=== PATIENT | male | born 1940 | race Caucasian/White ===

== ENCOUNTER 2023-02-19 11:57 | Inpatient (IN) | payer BC, MEDICARE ==
[2023-02-19] MEDS ORDERED: Bisacodyl 5 MG TAB PO PRN (15:32)
[2023-02-19] MEDS ORDERED: Artificial Tear Sol 15 ML BOT EA EYE PRN (15:32)
[2023-02-19] MEDS ORDERED: Calcium Carbonate 500 MG ChewTAB PO PRN (15:32)
[2023-02-19] MEDS ORDERED: Benzonatate 100 MG CAP PO PRN (15:32)
[2023-02-19] MEDS ORDERED: Guaifenesin DM 100-10/5 ML UDCUP PO PRN (15:32)
[2023-02-19] MEDS ORDERED: Bisacodyl 10 MG SUPP PR PRN (15:32)
[2023-02-19] MEDS ORDERED: Acetaminophen 325 MG TAB PO PRN (15:32)
[2023-02-19] MEDS ORDERED: Sodium Chloride 0.65% Nasal 44 ML BOT EA NARE PRN (15:32)
[2023-02-19] MEDS ORDERED: cloNIDine 0.1 MG TAB PO PRN (15:32)
[2023-02-19] MEDS ORDERED: Senokot S 8.6-50 MG TAB PO PRN (15:32)
[2023-02-19] MEDS ORDERED: Ondansetron ODT 4 MG TAB PO PRN (15:32)
[2023-02-19] MEDS ORDERED: Benzocaine/Menthol 1 LOZ LOZ PO PRN (15:32)
[2023-02-20] MEDS ORDERED: HYDROcodone/Acetaminophen 7.5/325 mg Tablet PO PRN (10:05)
[2023-02-20] MEDS: Famotidine 20 MG TAB PO SCH ×2 (12:44→20:49)
[2023-02-20] MEDS: HYDROcodone/Acetaminophen 7.5/325 mg Tablet PO PRN (16:14)
[2023-02-20] MEDS: Cilostazol 100 MG TAB PO SCH (16:15)
[2023-02-20] MEDS ORDERED: Non-Formulary Item 1 EACH (Cilostazol [Cilostazol] 50 MG Tablet) PO SCH (16:30)
[2023-02-20] MEDS: Gabapentin 100 MG CAP PO SCH (20:50)
[2023-02-20] MEDS: prednisoLONE 1% Ophth Susp 5 ml Bottle L EYE SCH (20:50)
[2023-02-20] MEDS: Simvastatin 10 MG TAB PO SCH (20:50)
[2023-02-20] MEDS: Senokot S 8.6-50 MG TAB PO SCH (20:50)
[2023-02-20] MEDS: Linezolid 600 MG TAB PO SCH (20:50)
[2023-02-20] MEDS: Nystatin Powder 15 GM BOT TOP SCH (20:51)
[2023-02-20] MEDS: Apixaban 5 MG TAB PO SCH (20:52)
[2023-02-20] MEDS ORDERED: Non-Formulary Item 1 EACH (Zolpidem Tartrate [Zolpidem Tartrate] 10 MG Tablet) PO SCH (21:00)
[2023-02-20] MEDS: Zolpidem Tartrate 5 MG TAB PO SCH (22:50)
[2023-02-21] MEDS: Levothyroxine Sodium 75 MCG TAB PO SCH (05:23)
[2023-02-21] MEDS: Cilostazol 100 MG TAB PO SCH ×2 (08:33→17:20)
[2023-02-21] MEDS ORDERED: Non-Formulary Item 1 EACH (Potassium Citrate [Potassium] 99 MG Capsule) PO SCH (09:00)
[2023-02-21] MEDS: Saccharomyces boulardii 250 MG CAP PO SCH (09:17)
[2023-02-21] MEDS: Potassium Chloride 8 MEQ TAB PO SCH (09:17)
[2023-02-21] MEDS: Senokot S 8.6-50 MG TAB PO SCH ×2 (09:17→20:41)
[2023-02-21] MEDS: Gabapentin 100 MG CAP PO SCH ×2 (09:18→20:41)
[2023-02-21] MEDS: Linezolid 600 MG TAB PO SCH ×2 (09:18→20:41)
[2023-02-21] MEDS: Famotidine 20 MG TAB PO SCH (09:18)
[2023-02-21] MEDS: Apixaban 5 MG TAB PO SCH ×2 (09:18→20:41)
[2023-02-21] MEDS: Folic Acid 1 MG TAB PO SCH (09:18)
[2023-02-21] MEDS: prednisoLONE 1% Ophth Susp 5 ml Bottle L EYE SCH ×2 (09:20→20:42)
[2023-02-21] MEDS: Nystatin Powder 15 GM BOT TOP SCH ×2 (09:21→20:41)
[2023-02-21] MEDS: Simvastatin 10 MG TAB PO SCH (20:41)
[2023-02-21] MEDS: HYDROcodone/Acetaminophen 7.5/325 mg Tablet PO PRN (20:46)
[2023-02-21] MEDS: Zolpidem Tartrate 5 MG TAB PO SCH (22:13)
[2023-02-22] MEDS: Levothyroxine Sodium 75 MCG TAB PO SCH (05:59)
[2023-02-22] MEDS: Apixaban 5 MG TAB PO SCH ×2 (07:37→20:47)
[2023-02-22] MEDS: HYDROcodone/Acetaminophen 7.5/325 mg Tablet PO PRN ×3 (07:38→20:50)
[2023-02-22] MEDS: Linezolid 600 MG TAB PO SCH ×2 (07:38→20:47)
[2023-02-22] MEDS: Saccharomyces boulardii 250 MG CAP PO SCH (07:39)
[2023-02-22] MEDS: Cilostazol 100 MG TAB PO SCH ×2 (07:39→16:28)
[2023-02-22] MEDS: Folic Acid 1 MG TAB PO SCH (07:39)
[2023-02-22] MEDS: Nystatin Powder 15 GM BOT TOP SCH ×2 (07:40→20:48)
[2023-02-22] MEDS: Potassium Chloride 8 MEQ TAB PO SCH (07:40)
[2023-02-22] MEDS: Senokot S 8.6-50 MG TAB PO SCH ×2 (07:40→20:47)
[2023-02-22] MEDS: prednisoLONE 1% Ophth Susp 5 ml Bottle L EYE SCH ×2 (07:41→20:48)
[2023-02-22] MEDS: Gabapentin 100 MG CAP PO SCH ×2 (07:42→20:47)
[2023-02-22] MEDS: traMADol HCl 50 MG TAB PO PRN (09:53)
[2023-02-22] MEDS ORDERED: Dextrose 50% Abboject 50 ML SYRINGE SLOW IVP PRN (17:15)
[2023-02-22] MEDS ORDERED: HumaLOG 300 UNITS/3 ML VIAL SC PRN ×2 (17:15)
[2023-02-22] MEDS ORDERED: Glucagon 1 MG/ML KIT IM PRN (17:15)
[2023-02-22] MEDS: Simvastatin 10 MG TAB PO SCH (20:47)
[2023-02-22] MEDS: Zolpidem Tartrate 5 MG TAB PO SCH (22:34)
[2023-02-23 05:10] LABS: Hematocrit 34.3 % (42.0-52.0); Platelet Count 502 10x3/uL (130-400)
[2023-02-23] MEDS: Levothyroxine Sodium 75 MCG TAB PO SCH (05:30)
[2023-02-23] MEDS: HYDROcodone/Acetaminophen 7.5/325 mg Tablet PO PRN ×4 (05:44→22:22)
[2023-02-23] MEDS: Potassium Chloride 8 MEQ TAB PO SCH (08:10)
[2023-02-23] MEDS: Apixaban 5 MG TAB PO SCH ×2 (08:10→20:45)
[2023-02-23] MEDS: Linezolid 600 MG TAB PO SCH ×2 (08:10→20:45)
[2023-02-23] MEDS: Folic Acid 1 MG TAB PO SCH (08:10)
[2023-02-23] MEDS: Gabapentin 100 MG CAP PO SCH ×2 (08:11→20:44)
[2023-02-23] MEDS: Senokot S 8.6-50 MG TAB PO SCH ×2 (08:11→20:44)
[2023-02-23] MEDS: Cilostazol 100 MG TAB PO SCH ×2 (08:12→16:32)
[2023-02-23] MEDS: Saccharomyces boulardii 250 MG CAP PO SCH (08:12)
[2023-02-23] MEDS: Nystatin Powder 15 GM BOT TOP SCH ×2 (08:13→20:44)
[2023-02-23] MEDS: prednisoLONE 1% Ophth Susp 5 ml Bottle L EYE SCH ×2 (08:13→20:44)
[2023-02-23] MEDS: traMADol HCl 50 MG TAB PO PRN (08:18)
[2023-02-23] MEDS: Simvastatin 10 MG TAB PO SCH (20:45)
[2023-02-23] MEDS: Zolpidem Tartrate 5 MG TAB PO SCH (22:18)
[2023-02-24] MEDS: Levothyroxine Sodium 75 MCG TAB PO SCH (08:26)
[2023-02-24] MEDS: HYDROcodone/Acetaminophen 7.5/325 mg Tablet PO PRN (08:33)
[2023-02-24] MEDS: Potassium Chloride 8 MEQ TAB PO SCH (09:02)
[2023-02-24] MEDS: Gabapentin 100 MG CAP PO SCH ×2 (09:02→20:21)
[2023-02-24] MEDS: Linezolid 600 MG TAB PO SCH ×2 (09:02→20:21)
[2023-02-24] MEDS: Saccharomyces boulardii 250 MG CAP PO SCH (09:02)
[2023-02-24] MEDS: Senokot S 8.6-50 MG TAB PO SCH ×2 (09:03→20:21)
[2023-02-24] MEDS: Folic Acid 1 MG TAB PO SCH (09:03)
[2023-02-24] MEDS: Cilostazol 100 MG TAB PO SCH ×2 (09:03→16:07)
[2023-02-24] MEDS: Nystatin Powder 15 GM BOT TOP SCH ×2 (09:03→20:21)
[2023-02-24] MEDS: prednisoLONE 1% Ophth Susp 5 ml Bottle L EYE SCH ×2 (09:03→20:21)
[2023-02-24] MEDS: Apixaban 5 MG TAB PO SCH ×2 (09:03→20:21)
[2023-02-24] MEDS: Simvastatin 10 MG TAB PO SCH (20:22)
[2023-02-24] MEDS: Zolpidem Tartrate 5 MG TAB PO SCH (20:22)
[2023-02-25 05:46] LABS: #Basophils 0.2 thou/uL (0.0-0.2); #Eosinphils 0.3 thou/uL (0.0-0.7); #Lymphocytes 2.4 thou/uL (1.20-3.40); #Monocytes 0.7 thou/uL (0.11-0.59); #Neutrophils 5.1 thou/uL (1.40-6.50); %Eosinophils 3.8 % (0.0-10.0); %Lymphocytes 27.9 % (21.0-51.0); %Neutrophils 58.3 % (42.0-75.0); Hematocrit 34.7 % (42.0-52.0); Hemoglobin 11.4 g/dL (14.0-18.0); Manual Diff?? NO; Mean Corpuscular HGB CONC 32.7 g/dL (32.0-36.0); Mean Corpuscular Hemoglobin 33.1 pg (27.0-31.0); Mean Platelet Volume 5.5 fL (7.4-10.4); Platelet Count 491 10x3/uL (130-400); RBC Distribution Width 14.1 % (11.5-14.5); Red Blood Cell (RBC) Count 3.43 mill/uL (4.70-6.10); White Blood Cell (WBC) Count 8.7 10x3/uL (4.8-10.8)
[2023-02-25 05:54] LABS: Anion Gap 10 mmol/L (10-20); BUN (Urea Nitrogen) 26 mg/dL (8.4-25.7); Calc. Creatinine Clearance 70 mL/min (70-130); Calcium 8.6 mg/dL (7.8-10.44); Chloride 105 mmol/L (98-107); Estimated GFR 88; Glucose 84 mg/dL (83-110); Potassium 4.3 mmol/L (3.5-5.1); Sodium 138 mmol/L (136-145)
[2023-02-25 05:57] LABS: Carbon Dioxide 27 mmol/L (23-31)
[2023-02-25] MEDS: Levothyroxine Sodium 75 MCG TAB PO SCH (06:11)
[2023-02-25] MEDS: Linezolid 600 MG TAB PO SCH ×2 (08:22→20:36)
[2023-02-25] MEDS: Potassium Chloride 8 MEQ TAB PO SCH (08:22)
[2023-02-25] MEDS: Gabapentin 100 MG CAP PO SCH ×2 (08:23→20:36)
[2023-02-25] MEDS: Saccharomyces boulardii 250 MG CAP PO SCH (08:23)
[2023-02-25] MEDS: HYDROcodone/Acetaminophen 7.5/325 mg Tablet PO PRN ×2 (08:23→20:39)
[2023-02-25] MEDS: Folic Acid 1 MG TAB PO SCH (08:23)
[2023-02-25] MEDS: Cilostazol 100 MG TAB PO SCH ×2 (08:25→16:05)
[2023-02-25] MEDS: Nystatin Powder 15 GM BOT TOP SCH ×2 (08:25→20:37)
[2023-02-25] MEDS: prednisoLONE 1% Ophth Susp 5 ml Bottle L EYE SCH ×2 (08:25→20:37)
[2023-02-25] MEDS: Apixaban 5 MG TAB PO SCH ×2 (08:25→20:36)
[2023-02-25] MEDS: Senokot S 8.6-50 MG TAB PO SCH ×2 (08:25→20:47)
[2023-02-25] MEDS: Simvastatin 10 MG TAB PO SCH (20:36)
[2023-02-25] MEDS: Zolpidem Tartrate 5 MG TAB PO SCH (22:29)
[2023-02-26] MEDS: Levothyroxine Sodium 75 MCG TAB PO SCH (05:23)
[2023-02-26] MEDS: Cilostazol 100 MG TAB PO SCH ×2 (08:13→16:28)
[2023-02-26] MEDS: Apixaban 5 MG TAB PO SCH ×2 (08:14→21:00)
[2023-02-26] MEDS: Linezolid 600 MG TAB PO SCH ×2 (08:15→21:01)
[2023-02-26] MEDS: Folic Acid 1 MG TAB PO SCH (08:15)
[2023-02-26] MEDS: Gabapentin 100 MG CAP PO SCH ×2 (08:15→21:01)
[2023-02-26] MEDS: Potassium Chloride 8 MEQ TAB PO SCH (09:00)
[2023-02-26] MEDS: Nystatin Powder 15 GM BOT TOP SCH ×2 (09:00→21:02)
[2023-02-26] MEDS: Senokot S 8.6-50 MG TAB PO SCH ×2 (09:01→21:00)
[2023-02-26] MEDS: Saccharomyces boulardii 250 MG CAP PO SCH (09:01)
[2023-02-26] MEDS: prednisoLONE 1% Ophth Susp 5 ml Bottle L EYE SCH ×2 (09:01→21:02)
[2023-02-26] MEDS: HYDROcodone/Acetaminophen 7.5/325 mg Tablet PO PRN ×2 (16:28→21:07)
[2023-02-26] MEDS: Simvastatin 10 MG TAB PO SCH (21:01)
[2023-02-26] MEDS: Zolpidem Tartrate 5 MG TAB PO SCH (22:29)
[2023-02-27] MEDS: Levothyroxine Sodium 75 MCG TAB PO SCH (05:33)
[2023-02-27] MEDS: HYDROcodone/Acetaminophen 7.5/325 mg Tablet PO PRN ×2 (05:36→20:50)
[2023-02-27] MEDS: Senokot S 8.6-50 MG TAB PO SCH ×2 (07:37→21:39)
[2023-02-27] MEDS: prednisoLONE 1% Ophth Susp 5 ml Bottle L EYE SCH ×2 (07:37→21:37)
[2023-02-27] MEDS: Potassium Chloride 8 MEQ TAB PO SCH (07:39)
[2023-02-27] MEDS: Saccharomyces boulardii 250 MG CAP PO SCH (07:39)
[2023-02-27] MEDS: Linezolid 600 MG TAB PO SCH ×2 (07:39→21:37)
[2023-02-27] MEDS: Folic Acid 1 MG TAB PO SCH (07:39)
[2023-02-27] MEDS: Apixaban 5 MG TAB PO SCH ×2 (07:39→21:35)
[2023-02-27] MEDS: Cilostazol 100 MG TAB PO SCH ×2 (07:40→16:27)
[2023-02-27] MEDS: Gabapentin 100 MG CAP PO SCH ×3 (07:40→21:35)
[2023-02-27] MEDS: Nystatin Powder 15 GM BOT TOP SCH ×2 (07:43→21:39)
[2023-02-27] MEDS: Zolpidem Tartrate 5 MG TAB PO SCH (21:34)
[2023-02-27] MEDS: Simvastatin 10 MG TAB PO SCH (21:37)
[2023-02-28] MEDS: Levothyroxine Sodium 75 MCG TAB PO SCH (05:29)
[2023-02-28] MEDS: HYDROcodone/Acetaminophen 7.5/325 mg Tablet PO PRN ×3 (06:33→21:10)
[2023-02-28] MEDS: Cilostazol 100 MG TAB PO SCH ×2 (07:31→17:06)
[2023-02-28] MEDS: Nystatin Powder 15 GM BOT TOP SCH ×3 (08:00→21:09)
[2023-02-28] MEDS: Saccharomyces boulardii 250 MG CAP PO SCH (08:18)
[2023-02-28] MEDS: Folic Acid 1 MG TAB PO SCH (08:18)
[2023-02-28] MEDS: Senokot S 8.6-50 MG TAB PO SCH ×2 (08:18→21:08)
[2023-02-28] MEDS: Potassium Chloride 8 MEQ TAB PO SCH (08:18)
[2023-02-28] MEDS: Gabapentin 100 MG CAP PO SCH ×2 (08:19→21:09)
[2023-02-28] MEDS: Linezolid 600 MG TAB PO SCH ×2 (08:20→21:06)
[2023-02-28] MEDS: Apixaban 5 MG TAB PO SCH ×2 (08:20→21:08)
[2023-02-28] MEDS: prednisoLONE 1% Ophth Susp 5 ml Bottle L EYE SCH ×2 (08:21→21:08)
[2023-02-28] MEDS: Simvastatin 10 MG TAB PO SCH (21:08)
[2023-02-28] MEDS: Zolpidem Tartrate 5 MG TAB PO SCH (21:09)
[2023-03-01] MEDS: HYDROcodone/Acetaminophen 7.5/325 mg Tablet PO PRN ×2 (03:33→20:59)
[2023-03-01] MEDS: Levothyroxine Sodium 75 MCG TAB PO SCH (05:38)
[2023-03-01] MEDS: Cilostazol 100 MG TAB PO SCH ×2 (07:06→16:39)
[2023-03-01] MEDS: Potassium Chloride 8 MEQ TAB PO SCH (07:47)
[2023-03-01] MEDS: Saccharomyces boulardii 250 MG CAP PO SCH (07:48)
[2023-03-01] MEDS: Senokot S 8.6-50 MG TAB PO SCH ×2 (07:48→21:01)
[2023-03-01] MEDS: Linezolid 600 MG TAB PO SCH ×2 (07:48→21:03)
[2023-03-01] MEDS: Folic Acid 1 MG TAB PO SCH (07:49)
[2023-03-01] MEDS: Gabapentin 100 MG CAP PO SCH ×2 (07:49→21:01)
[2023-03-01] MEDS: Apixaban 5 MG TAB PO SCH ×2 (07:50→21:02)
[2023-03-01] MEDS: prednisoLONE 1% Ophth Susp 5 ml Bottle L EYE SCH ×2 (07:51→21:03)
[2023-03-01] MEDS: Nystatin Powder 15 GM BOT TOP SCH ×4 (09:15→21:10)
[2023-03-01] MEDS: Zolpidem Tartrate 5 MG TAB PO SCH (21:03)
[2023-03-01] MEDS: Simvastatin 10 MG TAB PO SCH (21:03)
[2023-03-02] MEDS: Levothyroxine Sodium 75 MCG TAB PO SCH (05:52)
[2023-03-02] MEDS: Cilostazol 100 MG TAB PO SCH ×2 (07:29→16:42)
[2023-03-02] MEDS: Nystatin Powder 15 GM BOT TOP SCH ×2 (08:28→20:44)
[2023-03-02] MEDS: Gabapentin 100 MG CAP PO SCH ×2 (08:29→20:43)
[2023-03-02] MEDS: prednisoLONE 1% Ophth Susp 5 ml Bottle L EYE SCH ×2 (08:29→20:45)
[2023-03-02] MEDS: Senokot S 8.6-50 MG TAB PO SCH ×2 (08:30→20:44)
[2023-03-02] MEDS: Saccharomyces boulardii 250 MG CAP PO SCH (08:30)
[2023-03-02] MEDS: Potassium Chloride 8 MEQ TAB PO SCH (08:30)
[2023-03-02] MEDS: Apixaban 5 MG TAB PO SCH ×2 (08:30→20:42)
[2023-03-02] MEDS: Linezolid 600 MG TAB PO SCH ×2 (08:33→20:45)
[2023-03-02] MEDS: Folic Acid 1 MG TAB PO SCH (08:36)
[2023-03-02] MEDS: Zolpidem Tartrate 5 MG TAB PO SCH (20:44)
[2023-03-02] MEDS: Simvastatin 10 MG TAB PO SCH (20:44)
[2023-03-03] MEDS: HYDROcodone/Acetaminophen 7.5/325 mg Tablet PO PRN ×3 (03:09→16:08)
[2023-03-03 05:56] LABS: #Basophils 0.1 thou/uL (0.0-0.2); #Eosinphils 0.4 thou/uL (0.0-0.7); #Lymphocytes 2.2 thou/uL (1.20-3.40); #Monocytes 0.6 thou/uL (0.11-0.59); #Neutrophils 3.8 thou/uL (1.40-6.50); %Basophils 2.1 % (0.0-1.0); %Eosinophils 5.8 % (0.0-10.0); %Lymphocytes 30.5 % (21.0-51.0); %Monocytes 8.4 % (0.0-10.0); %Neutrophils 53.2 % (42.0-75.0); Hematocrit 31.5 % (42.0-52.0); Hemoglobin 10.3 g/dL (14.0-18.0); Mean Corpuscular HGB CONC 32.7 g/dL (32.0-36.0); Mean Corpuscular Hemoglobin 32.7 pg (27.0-31.0); Mean Platelet Volume 5.2 fL (7.4-10.4); Platelet Count 315 10x3/uL (130-400); RBC Distribution Width 13.6 % (11.5-14.5); Red Blood Cell (RBC) Count 3.15 mill/uL (4.70-6.10); White Blood Cell (WBC) Count 7.1 10x3/uL (4.8-10.8)
[2023-03-03 05:57] LABS: Anion Gap 11 mmol/L (10-20); BUN (Urea Nitrogen) 38 mg/dL (8.4-25.7); Calc. Creatinine Clearance 77 mL/min (70-130); Calcium 8.4 mg/dL (7.8-10.44); Carbon Dioxide 25 mmol/L (23-31); Chloride 107 mmol/L (98-107); Estimated GFR 90; Glucose 86 mg/dL (83-110); Potassium 4.4 mmol/L (3.5-5.1); Sodium 139 mmol/L (136-145)
[2023-03-03] MEDS: Levothyroxine Sodium 75 MCG TAB PO SCH (06:10)
[2023-03-03] MEDS: Cilostazol 100 MG TAB PO SCH ×2 (07:44→16:07)
[2023-03-03] MEDS: Gabapentin 100 MG CAP PO SCH ×2 (08:29→20:45)
[2023-03-03] MEDS: Saccharomyces boulardii 250 MG CAP PO SCH (08:29)
[2023-03-03] MEDS: Apixaban 5 MG TAB PO SCH ×2 (08:30→20:44)
[2023-03-03] MEDS: Senokot S 8.6-50 MG TAB PO SCH ×2 (08:30→20:44)
[2023-03-03] MEDS: Folic Acid 1 MG TAB PO SCH (08:31)
[2023-03-03] MEDS: Potassium Chloride 8 MEQ TAB PO SCH (08:31)
[2023-03-03] MEDS: prednisoLONE 1% Ophth Susp 5 ml Bottle L EYE SCH ×2 (08:32→20:47)
[2023-03-03] MEDS: Nystatin Powder 15 GM BOT TOP SCH ×2 (11:25→20:47)
[2023-03-03] MEDS: Simvastatin 10 MG TAB PO SCH (20:44)
[2023-03-03] MEDS: Zolpidem Tartrate 5 MG TAB PO SCH (20:45)
[2023-03-04] MEDS: Levothyroxine Sodium 75 MCG TAB PO SCH (06:01)
[2023-03-04] MEDS: Nystatin Powder 15 GM BOT TOP SCH ×2 (07:40→20:46)
[2023-03-04] MEDS: Cilostazol 100 MG TAB PO SCH ×2 (07:41→16:25)
[2023-03-04] MEDS: Senokot S 8.6-50 MG TAB PO SCH ×2 (07:42→20:46)
[2023-03-04] MEDS: prednisoLONE 1% Ophth Susp 5 ml Bottle L EYE SCH ×2 (07:42→20:47)
[2023-03-04] MEDS: Apixaban 5 MG TAB PO SCH ×2 (07:42→20:45)
[2023-03-04] MEDS: Folic Acid 1 MG TAB PO SCH (07:42)
[2023-03-04] MEDS: Gabapentin 100 MG CAP PO SCH ×2 (07:43→20:45)
[2023-03-04] MEDS: Potassium Chloride 8 MEQ TAB PO SCH (07:43)
[2023-03-04] MEDS: Saccharomyces boulardii 250 MG CAP PO SCH (07:48)
[2023-03-04] MEDS ORDERED: Linezolid 600 MG TAB PO SCH (10:45)
[2023-03-04] MEDS: Simvastatin 10 MG TAB PO SCH (20:45)
[2023-03-04] MEDS: Linezolid 600 MG TAB PO SCH (20:46)
[2023-03-04] MEDS: Zolpidem Tartrate 5 MG TAB PO SCH (20:47)
[2023-03-05] MEDS: Levothyroxine Sodium 75 MCG TAB PO SCH (06:33)
[2023-03-05] MEDS: Nystatin Powder 15 GM BOT TOP SCH ×2 (08:09→20:32)
[2023-03-05] MEDS: Potassium Chloride 8 MEQ TAB PO SCH (08:10)
[2023-03-05] MEDS: Apixaban 5 MG TAB PO SCH ×2 (08:10→20:20)
[2023-03-05] MEDS: Saccharomyces boulardii 250 MG CAP PO SCH (08:11)
[2023-03-05] MEDS: Gabapentin 100 MG CAP PO SCH ×2 (08:11→20:21)
[2023-03-05] MEDS: Senokot S 8.6-50 MG TAB PO SCH ×3 (08:12→20:25)
[2023-03-05] MEDS: Cilostazol 100 MG TAB PO SCH ×2 (08:12→17:21)
[2023-03-05] MEDS: Linezolid 600 MG TAB PO SCH ×2 (08:12→20:21)
[2023-03-05] MEDS: prednisoLONE 1% Ophth Susp 5 ml Bottle L EYE SCH ×2 (08:15→20:23)
[2023-03-05] MEDS: Folic Acid 1 MG TAB PO SCH (08:27)
[2023-03-05] MEDS: Simvastatin 10 MG TAB PO SCH (20:20)
[2023-03-05] MEDS: Zolpidem Tartrate 5 MG TAB PO SCH (20:20)
[2023-03-05] MEDS: HYDROcodone/Acetaminophen 7.5/325 mg Tablet PO PRN (20:31)
[2023-03-06] MEDS ORDERED: Triamcinolone 0.1% Cream 15 GM TUBE TOP PRN (03:42)
[2023-03-06] MEDS: Levothyroxine Sodium 75 MCG TAB PO SCH (05:38)
[2023-03-06] MEDS: Cilostazol 100 MG TAB PO SCH ×2 (08:23→16:53)
[2023-03-06] MEDS: Gabapentin 100 MG CAP PO SCH ×2 (08:25→20:24)
[2023-03-06] MEDS: Linezolid 600 MG TAB PO SCH ×2 (08:27→20:24)
[2023-03-06] MEDS: Loratadine 10 MG TAB PO SCH (08:27)
[2023-03-06] MEDS: Apixaban 5 MG TAB PO SCH ×2 (08:27→20:24)
[2023-03-06] MEDS: Nystatin Powder 15 GM BOT TOP SCH ×2 (08:28→20:23)
[2023-03-06] MEDS: Saccharomyces boulardii 250 MG CAP PO SCH (08:28)
[2023-03-06] MEDS: Folic Acid 1 MG TAB PO SCH (08:28)
[2023-03-06] MEDS: Potassium Chloride 8 MEQ TAB PO SCH (08:28)
[2023-03-06] MEDS: prednisoLONE 1% Ophth Susp 5 ml Bottle L EYE SCH ×2 (08:29→20:24)
[2023-03-06] MEDS: Senokot S 8.6-50 MG TAB PO SCH ×2 (08:30→20:24)
[2023-03-06] MEDS: Simvastatin 10 MG TAB PO SCH (20:24)
[2023-03-06] MEDS: Zolpidem Tartrate 5 MG TAB PO SCH (21:55)
[2023-03-07] MEDS: Levothyroxine Sodium 75 MCG TAB PO SCH (05:41)
[2023-03-07] MEDS: Loratadine 10 MG TAB PO SCH (07:29)
[2023-03-07] MEDS: Gabapentin 100 MG CAP PO SCH ×2 (07:29→21:36)
[2023-03-07] MEDS: prednisoLONE 1% Ophth Susp 5 ml Bottle L EYE SCH ×2 (07:29→21:31)
[2023-03-07] MEDS: Cilostazol 100 MG TAB PO SCH ×2 (07:30→16:19)
[2023-03-07] MEDS: Senokot S 8.6-50 MG TAB PO SCH ×2 (07:30→21:32)
[2023-03-07] MEDS: Saccharomyces boulardii 250 MG CAP PO SCH (07:30)
[2023-03-07] MEDS: Folic Acid 1 MG TAB PO SCH (07:30)
[2023-03-07] MEDS: Potassium Chloride 8 MEQ TAB PO SCH (07:30)
[2023-03-07] MEDS: Apixaban 5 MG TAB PO SCH ×2 (07:30→21:32)
[2023-03-07] MEDS: Nystatin Powder 15 GM BOT TOP SCH ×2 (07:37→21:31)
[2023-03-07] MEDS: HYDROcodone/Acetaminophen 7.5/325 mg Tablet PO PRN ×2 (10:19→21:37)
[2023-03-07] MEDS ORDERED: ALPRAZolam 0.25 MG TAB PO PRN (14:42)
[2023-03-07] MEDS: Simvastatin 10 MG TAB PO SCH (21:31)
[2023-03-07] MEDS: Zolpidem Tartrate 5 MG TAB PO SCH (21:36)
[2023-03-08] MEDS: Levothyroxine Sodium 75 MCG TAB PO SCH (05:22)
[2023-03-08] MEDS: Senokot S 8.6-50 MG TAB PO SCH ×2 (07:40→20:43)
[2023-03-08] MEDS: Loratadine 10 MG TAB PO SCH (07:40)
[2023-03-08] MEDS: prednisoLONE 1% Ophth Susp 5 ml Bottle L EYE SCH ×2 (07:40→20:44)
[2023-03-08] MEDS: Saccharomyces boulardii 250 MG CAP PO SCH (07:41)
[2023-03-08] MEDS: Gabapentin 100 MG CAP PO SCH ×2 (07:41→20:42)
[2023-03-08] MEDS: Cilostazol 100 MG TAB PO SCH ×2 (07:41→16:06)
[2023-03-08] MEDS: HYDROcodone/Acetaminophen 7.5/325 mg Tablet PO PRN (07:42)
[2023-03-08] MEDS: Potassium Chloride 8 MEQ TAB PO SCH (07:42)
[2023-03-08] MEDS: Apixaban 5 MG TAB PO SCH ×2 (07:42→20:43)
[2023-03-08] MEDS: Folic Acid 1 MG TAB PO SCH (07:43)
[2023-03-08] MEDS: Nystatin Powder 15 GM BOT TOP SCH ×2 (07:43→20:44)
[2023-03-08] MEDS: Simvastatin 10 MG TAB PO SCH (20:43)
[2023-03-08] MEDS: Zolpidem Tartrate 5 MG TAB PO SCH (20:43)
[2023-03-09] MEDS: Levothyroxine Sodium 75 MCG TAB PO SCH (06:17)
[2023-03-09] MEDS: Apixaban 5 MG TAB PO SCH ×2 (07:30→20:43)
[2023-03-09] MEDS: Loratadine 10 MG TAB PO SCH (07:31)
[2023-03-09] MEDS: Gabapentin 100 MG CAP PO SCH ×2 (07:31→20:43)
[2023-03-09] MEDS: Potassium Chloride 8 MEQ TAB PO SCH (07:32)
[2023-03-09] MEDS: Nystatin Powder 15 GM BOT TOP SCH ×2 (07:33→20:44)
[2023-03-09] MEDS: Cilostazol 100 MG TAB PO SCH ×2 (07:33→16:23)
[2023-03-09] MEDS: Folic Acid 1 MG TAB PO SCH (07:33)
[2023-03-09] MEDS: prednisoLONE 1% Ophth Susp 5 ml Bottle L EYE SCH ×2 (07:33→20:43)
[2023-03-09] MEDS: Senokot S 8.6-50 MG TAB PO SCH ×2 (07:33→20:43)
[2023-03-09] MEDS: Saccharomyces boulardii 250 MG CAP PO SCH (07:33)
[2023-03-09] MEDS: Simvastatin 10 MG TAB PO SCH (20:43)
[2023-03-09] MEDS: Zolpidem Tartrate 5 MG TAB PO SCH (20:43)
[2023-03-10] MEDS: HYDROcodone/Acetaminophen 7.5/325 mg Tablet PO PRN (00:50)
[2023-03-10] MEDS: Levothyroxine Sodium 75 MCG TAB PO SCH (06:00)
[2023-03-10] MEDS: Apixaban 5 MG TAB PO SCH ×2 (07:57→20:50)
[2023-03-10] MEDS: Potassium Chloride 8 MEQ TAB PO SCH (07:57)
[2023-03-10] MEDS: Gabapentin 100 MG CAP PO SCH ×2 (07:58→20:50)
[2023-03-10] MEDS: Saccharomyces boulardii 250 MG CAP PO SCH (07:58)
[2023-03-10] MEDS: Loratadine 10 MG TAB PO SCH (07:58)
[2023-03-10] MEDS: Folic Acid 1 MG TAB PO SCH (07:58)
[2023-03-10] MEDS: Cilostazol 100 MG TAB PO SCH ×2 (07:58→16:32)
[2023-03-10] MEDS: Senokot S 8.6-50 MG TAB PO SCH ×2 (07:59→20:50)
[2023-03-10] MEDS: prednisoLONE 1% Ophth Susp 5 ml Bottle L EYE SCH ×2 (08:00→20:51)
[2023-03-10] MEDS: Nystatin Powder 15 GM BOT TOP SCH (08:02)
[2023-03-10 09:04] LABS: #Basophils 0.1 thou/uL (0.0-0.2); #Eosinphils 0.4 thou/uL (0.0-0.7); #Lymphocytes 1.8 thou/uL (1.20-3.40); #Monocytes 1.2 thou/uL (0.11-0.59); #Neutrophils 5.8 thou/uL (1.40-6.50); %Basophils 1.1 % (0.0-1.0); %Eosinophils 4.7 % (0.0-10.0); %Monocytes 12.6 % (0.0-10.0); %Neutrophils 62.6 % (42.0-75.0); Hematocrit 34.7 % (42.0-52.0); Hemoglobin 11.5 g/dL (14.0-18.0); Mean Corpuscular Hemoglobin 32.7 pg (27.0-31.0); Mean Corpuscular Volume 99.1 fl (78.0-98.0); Mean Platelet Volume 5.5 fL (7.4-10.4); Platelet Count 322 10x3/uL (130-400); RBC Distribution Width 13.2 % (11.5-14.5); White Blood Cell (WBC) Count 9.3 10x3/uL (4.8-10.8)
[2023-03-10 09:17] LABS: Anion Gap 13 mmol/L (10-20); BUN (Urea Nitrogen) 27 mg/dL (8.4-25.7); Calc. Creatinine Clearance 70 mL/min (70-130); Calcium 9.5 mg/dL (7.8-10.44); Carbon Dioxide 29 mmol/L (23-31); Chloride 103 mmol/L (98-107); Estimated GFR 89; Glucose 151 mg/dL (83-110); Potassium 4.5 mmol/L (3.5-5.1); Sodium 140 mmol/L (136-145)
[2023-03-10] MEDS ORDERED: Nystatin Powder 15 GM BOT TOP PRN (16:52)
[2023-03-10] MEDS: Simvastatin 10 MG TAB PO SCH (20:50)
[2023-03-10] MEDS: Zolpidem Tartrate 5 MG TAB PO SCH (22:04)
[2023-03-11] MEDS: Levothyroxine Sodium 75 MCG TAB PO SCH (05:36)
[2023-03-11] MEDS: Senokot S 8.6-50 MG TAB PO SCH ×2 (08:21→21:01)
[2023-03-11] MEDS: Gabapentin 100 MG CAP PO SCH ×2 (08:21→21:01)
[2023-03-11] MEDS: Loratadine 10 MG TAB PO SCH (08:21)
[2023-03-11] MEDS: Potassium Chloride 8 MEQ TAB PO SCH (08:22)
[2023-03-11] MEDS: Apixaban 5 MG TAB PO SCH ×2 (08:22→21:01)
[2023-03-11] MEDS: Cilostazol 100 MG TAB PO SCH ×2 (08:22→17:39)
[2023-03-11] MEDS: prednisoLONE 1% Ophth Susp 5 ml Bottle L EYE SCH ×2 (08:22→21:02)
[2023-03-11] MEDS: Saccharomyces boulardii 250 MG CAP PO SCH (08:22)
[2023-03-11] MEDS: Folic Acid 1 MG TAB PO SCH (08:22)
[2023-03-11] MEDS: Zolpidem Tartrate 5 MG TAB PO SCH (21:01)
[2023-03-11] MEDS: Simvastatin 10 MG TAB PO SCH (21:01)
[2023-03-12] MEDS: Levothyroxine Sodium 75 MCG TAB PO SCH (05:36)
[2023-03-12] MEDS: prednisoLONE 1% Ophth Susp 5 ml Bottle L EYE SCH ×2 (07:40→21:00)
[2023-03-12] MEDS: Senokot S 8.6-50 MG TAB PO SCH ×2 (07:40→21:01)
[2023-03-12] MEDS: Potassium Chloride 8 MEQ TAB PO SCH (07:41)
[2023-03-12] MEDS: Saccharomyces boulardii 250 MG CAP PO SCH (07:41)
[2023-03-12] MEDS: Folic Acid 1 MG TAB PO SCH (07:41)
[2023-03-12] MEDS: Loratadine 10 MG TAB PO SCH (07:41)
[2023-03-12] MEDS: Gabapentin 100 MG CAP PO SCH ×2 (07:41→21:01)
[2023-03-12] MEDS: Apixaban 5 MG TAB PO SCH ×2 (07:41→21:00)
[2023-03-12] MEDS: Cilostazol 100 MG TAB PO SCH ×2 (07:42→16:39)
[2023-03-12] MEDS: Simvastatin 10 MG TAB PO SCH (21:00)
[2023-03-12] MEDS: Zolpidem Tartrate 5 MG TAB PO SCH (21:00)
[2023-03-13] MEDS: Levothyroxine Sodium 75 MCG TAB PO SCH (05:28)
[2023-03-13] MEDS: Potassium Chloride 8 MEQ TAB PO SCH (08:12)
[2023-03-13] MEDS: Gabapentin 100 MG CAP PO SCH ×2 (08:12→20:31)
[2023-03-13] MEDS: Apixaban 5 MG TAB PO SCH ×2 (08:12→20:31)
[2023-03-13] MEDS: Loratadine 10 MG TAB PO SCH (08:13)
[2023-03-13] MEDS: Folic Acid 1 MG TAB PO SCH (08:13)
[2023-03-13] MEDS: Cilostazol 100 MG TAB PO SCH ×2 (08:14→16:39)
[2023-03-13] MEDS: prednisoLONE 1% Ophth Susp 5 ml Bottle L EYE SCH ×2 (08:14→20:32)
[2023-03-13] MEDS: Senokot S 8.6-50 MG TAB PO SCH ×2 (08:14→20:31)
[2023-03-13] MEDS: Saccharomyces boulardii 250 MG CAP PO SCH (08:16)
[2023-03-13 08:29] VITALS: BMI 24.2
[2023-03-13] MEDS: Simvastatin 10 MG TAB PO SCH (20:31)
[2023-03-13] MEDS: Zolpidem Tartrate 5 MG TAB PO SCH (20:31)
[2023-03-14] MEDS: Levothyroxine Sodium 75 MCG TAB PO SCH (05:52)
[2023-03-14] MEDS: Cilostazol 100 MG TAB PO SCH ×2 (07:47→15:43)
[2023-03-14] MEDS: Senokot S 8.6-50 MG TAB PO SCH (07:50)
[2023-03-14] MEDS: Potassium Chloride 8 MEQ TAB PO SCH (07:50)
[2023-03-14] MEDS: Gabapentin 100 MG CAP PO SCH (07:50)
[2023-03-14] MEDS: Apixaban 5 MG TAB PO SCH (07:52)
[2023-03-14] MEDS: Loratadine 10 MG TAB PO SCH (07:52)
[2023-03-14] MEDS: Saccharomyces boulardii 250 MG CAP PO SCH (07:52)
[2023-03-14] MEDS: prednisoLONE 1% Ophth Susp 5 ml Bottle L EYE SCH (07:53)
[2023-03-14] MEDS: Folic Acid 1 MG TAB PO SCH (07:53)
[2023-03-14 08:23] VITALS: TEMP 98
[2023-03-14] MEDS ORDERED: Ondansetron ODT 4 MG TAB SL PRN (11:00)
[2023-03-14 16:12] VITALS: BP 118/63
== END 2023-03-14 16:05 | disposition home or self-care (01) | DRG 948 ==
LOC: NAV ACUTE 02-20 10:47
PROVIDERS: ADMIT Family Medicine; ATTEND Family Medicine
DX: R53.1 Weakness (principal); L03.116 Cellulitis of left lower limb; E11.9 Type 2 diabetes mellitus without complications; I10 Essential (primary) hypertension; E11.51 Type 2 diabetes mellitus with diabetic peripheral angiopathy without gangrene; E03.9 Hypothyroidism, unspecified; R53.81 Other malaise; Z88.1 Allergy status to other antibiotic agents; Z90.49 Acquired absence of other specified parts of digestive tract; Z79.899 Other long term (current) drug therapy; Z79.890 Hormone replacement therapy
CPT/HCPCS: 36415; 36416; 80048; 85014; 85018; 85025; 85049; 97602; J1815